=== PATIENT | male | born 1950 | race Caucasian/White ===

== ENCOUNTER 2024-04-16 01:20 | Emergency (ER) | payer OTHER, BC ==
[~2024-04-16] VITALS: Ht 182.9 cm; Wt 81.6 kg
[~2024-04-16 01:20] MED LIST: AMOX1TAB8 PO; ASPI-1822 PO; ATOR20TA PO; FOLI1TAB90 PO; ISOS30TE68 PO; METO25TE2 PO; MIRT7.5T14 PO; QUET25TA PO; SINE10 PO; SULF500T6 PO
[2024-04-16 01:33] VITALS: BP 142/75; PULSE 60; RESP 17; TEMP 97.8; O2SAT 98
[2024-04-16] MEDS ORDERED: WATER STERILE 10 ML MC ONE (01:48)
[2024-04-16] MEDS: OLANZapine 10 MG VIAL IM ONE (01:58)
[2024-04-16] MEDS ORDERED: MORPHINE SULFATE 4 MG/ML SYR ONE (02:29)
[2024-04-16] MEDS: MORPHINE SULFATE 4 MG/ML SYR IM ONE (02:33)
[2024-04-16] MEDS ORDERED: MIDAZOLAM 5 MG/5 ML VIAL ONE (02:44)
[2024-04-16] MEDS: MIDAZOLAM 2 MG/2 ML VIAL IM ONE (02:49)
[2024-04-16 07:37] VITALS: BP 144/91; PULSE 65; RESP 20; TEMP 97.8; O2SAT 100
== END 2024-04-16 07:37 | disposition home or self-care (01) ==
LOC: MED 01:20
DX: S42.032A Displaced fracture of lateral end of left clavicle, initial encounter for closed fracture (principal); S09.90XA Unspecified injury of head, initial encounter; F03.90 Unspecified dementia, unspecified severity, without behavioral disturbance, psychotic disturbance, mood disturbance, and anxiety; Z79.82 Long term (current) use of aspirin; Z79.2 Long term (current) use of antibiotics; Z79.899 Other long term (current) drug therapy; W18.39XA Other fall on same level, initial encounter; Y93.89 Activity, other specified; Y92.89 Other specified places as the place of occurrence of the external cause; Y99.8 Other external cause status
CPT/HCPCS: 70450; 73030; 96372; 99285; J2250; J2270; J3490